=== PATIENT | male | born 1945 | race Caucasian/White ===

== ENCOUNTER 2025-06-02 06:22 | Day surgery (SDC) | payer MEDICARE, BC, SELFPAY ==
[2025-05-31 14:14] VITALS: BMI 25.1
--- NOTE | 2025-06-01 15:11 | EXP.HP ---
History of Present Illness *Admission Date: 06/02/25 *History of present illness: Mr. Mujica is a 79-year-old gentleman who is here for diagnostic EGD. 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 The patient more had C. difficile colitis and was treated with vancomycin with improvement of his symptoms. He does have atrophic gastritis and low B12 levels. The patient had previously been followed with Dr. Alirio Villaseñor in [place]. He did eventually come to see me and had an EGD in January 2024 that showed a duodenal stricture of the first portion which was dilated to 12 mm. There was a pyloric stricture that was dilated also to 12 mm. There was evidence of chronic atrophic gastritis but there was also an esophageal stricture that was dilated to 18 mm. The patient has done very well since then. He did have some reflux esophagitis but I did tell him that he had mostly bile reflux and that with atrophic gastritis he has very low gastric acid levels and I would avoid PPI therapy. He also has associated B12 deficiency. The patient has had a left lower extremity DVT and has been on Eliquis. There has been some resolution of clot on his subsequent scans. He also has some prostatitis. He has chronic left shoulder arthritis and is planning to have this repaired surgically with possible shoulder replacement. [facility] Disclaimer: The information contained in this section may have been updated after the patient was seen, as this information can be updated by other users. Medical History History of DVT (deep vein thrombosis) Hyperlipidemia Coronary artery disease (CAD) excluded Surgical History H/O shoulder surgery History of hip replacement, total Family History Other Heart disease Social History (Updated 06/02/25 @ 07:45 by Belen Saab CRNA) Smoking Status: Never smoker alcohol intake: never substance use type: unknown current occupational status: retired Travel in the last 8 weeks?: None caffeine: No Have you lived/traveled outside [place] in past 30 days?: No Contact w/someone who lives/traveled outside US past 30 days?: No Exposure to someone with infectious disease in past 14 days?: No Do you have a fever (greater than 100.4 F or 38 C)?: No Have you tested positive for COVID-19?: No Exposed to someone with COVID-19 in past 14 days?: No Do you have a sore throat?: No Do you have a cough?: No Do you have any weakness?: No Are you experiencing any nausea/vomitting?: No Do you have any diarrhea?: No Are you experiencing any unusual bleeding?: No Do you have any muscle aches/pain?: No Do you have any abdominal pain?: No Are you experiencing loss of taste or smell?: No Other Medical History Have you received the Pneumonia Vaccine: No Review of Systems Review of Systems Review of systems (narrative): Negative *Cardiovascular Comments: Negative *Gastrointestinal Comments: Negative *Genitourinary Comments: Negative *Musculoskeletal Comments: Negative *Neurologic Comments: Negative Meds Home Medications and Allergies Home Medications ?Medication ?Instructions ?Recorded ?Confirmed ?Type aspirin 81 mg tablet,delayed 81 mg PO DAILY 11/02/24 06/02/25 History release rosuvastatin 20 mg tablet 20 mg PO DAILY 11/02/24 06/02/25 History apixaban 5 mg tablet (Eliquis) 5 mg PO BID 12/01/24 06/02/25 History ascorbate calcium (vitamin C) 500 500 mg PO DAILY 12/01/24 06/02/25 History mg tablet cholecalciferol (vitamin D3) 10 10 mcg PO DAILY 12/01/24 06/02/25 History mcg (400 unit) capsule cyanocobalamin (vitamin B-12) 1,000 mcg PO QODHS 03/01/25 06/02/25 History 1,000 mcg sublingual tablet timolol maleate 0.5 % eye drops 1 drp Eye-Right BID 03/01/25 06/02/25 History New Prescriptions to Start Prescriptions: Allergies Allergy/AdvReac Type Severity Reaction Status Date / Time ciprofloxacin AdvReac Mild Other Verified 06/02/25 07:07 doxycycline AdvReac Headache Verified 06/02/25 07:07 Exam Data for Last 24 hours I & O for Last 24 hours: Intake & Output 05/29/25 05/30/25 05/31/25 06/01/25 23:59 23:59 23:59 23:59 Weight 170 lb *Routine HEENT Exam Head: Present normocephalic Eye: Present EOMI and PERRL ENT: Present mucous membranes moist *Routine Neck Exam Neck: Present supple *Routine Respiratory Exam Respiratory: Present CTA bilaterally *Routine Cardiovascular Exam Cardiovascular: Present RRR *Routine Abdominal Exam Abdominal: Present soft and normoactive bowel sounds; Absent tenderness *Routine Rectal Exam Rectal:: deferred *Routine Genitalia Exam Genitalia:: deferred *Routine Extremities Exam Extremities: Absent cyanosis, clubbing or edema *Routine Skin Exam Skin: Present warm; Absent rash *Routine Neurological Exam Neurological: Present alert and oriented X3 Assessment and Plan *Assessment and plan (1) Duodenal stricture: Status: Acute Category: Medical Code(s): K31.5 - Obstruction of duodenum (2) Chronic atrophic gastritis: Status: Acute Category: Medical Code(s): K29.40 - Chronic atrophic gastritis without bleeding (3) History of esophageal stricture: Status: Acute Category: Medical Code(s): Z87.19 - Personal history of other diseases of the digestive system Plan A/P: 1. History of esophageal stricture and duodenal stricture and chronic atrophic gastritis is the preprocedural diagnosis. The patient will be anesthetized/sedated using MAC sedation. The patient has been seen and examined. Cardiac and lung assessment prior to the examination is stable. Proceed with planned EGD.
--- NOTE | 2025-06-01 15:14 | HMH.PROCNOTE ---
[facility] Procedure Note Date: 06/02/25 Time: 08:24 Procedure Note:: Upper Endoscopy Procedure Report: Esophagogastroduodenoscopy with cold biopsies and TTS balloon dilation Endoscopost: Prabhjot Chisholm II, MD Referring Physician: Ash Marcelino MD Date of Procedure: June 02, 2025 Equipment: Olympus GIF-1100 standard upper endoscope Sedation: MAC sedation Indications: Mr. Mujica is a 79-year-old gentleman who is here for diagnostic EGD. 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 This was felt to be related to NSAIDs (i.e. Excedrin) which she was using for a long period of time for the treatment of headaches. The patient had C. difficile colitis earlier this year and was treated with vancomycin with improvement of his symptoms. He does have atrophic gastritis and low B12 levels. The patient had previously been followed with Dr. Alirio Villaseñor in [place]. He did eventually come to see me and had an EGD in January 2024 that showed a duodenal stricture of the first portion which was dilated to 12 mm. There was a pyloric stricture that was dilated also to 12 mm. There was evidence of chronic atrophic gastritis but there was also an esophageal stricture that was dilated to 18 mm. The patient has done very well since then. He did have some reflux esophagitis but I did tell him that he had mostly bile reflux and that with atrophic gastritis he has very low gastric acid levels and I would avoid PPI therapy. He also has associated B12 deficiency. The patient has had a left lower extremity DVT and has been on Eliquis. There has been some resolution of clot on his subsequent scans. He also has some prostatitis. He has chronic left shoulder arthritis and was planning to have this repaired surgically with possible shoulder replacement. Procedure: Prior to the procedure, a history and physical exam was performed, and patient's medications and allergies were reviewed. The risks, benefits and alternatives of the sedation and procedure were discussed with the patient. All questions were answered and informed consent was obtained. The patient was brought to the procedure room. Patient identification and proposed procedure were verified by the physician and the nurse. The patient was placed in a left lateral decubitus position and the scope was passed under direct vision. Throughout the procedure, the patient's blood pressure, pulse, and oxygen saturations were monitored continuously. The upper GI endoscopy was accomplished without difficulty. The patient tolerated the procedure well. Findings: The scope was passed directly into the upper esophagus and advanced to the third portion of the duodenum. Initially, the 9 mm endoscope could not be advanced through the pylorus easily in the pyloric diameter was approximately 7 to 8 mm (pyloric stenosis). This was traversed and there was a second stenotic region in the first portion of the duodenum that was approximately 9 to 10 mm diameter. A cold biopsy was taken from the second portion of the duodenum for the disaccharidase assay. The scope was withdrawn. A wire-guided TTS hydrostatic balloon was utilized to dilate the stenotic first portion and pylorus and these were both dilated to 13.5 mm with a TTS hydrostatic balloon. The scope was withdrawn into the stomach. There was mild atrophy of the body and fundus of the stomach and cold biopsies were obtained from the fundus. Upon retroflexion there was a very small sliding 1 to 2 cm hiatal hernia. The scope was then withdrawn into the esophagus. There was a distal Schatzki's ring/fibrotic ring. There were strong tertiary contractions and evidence of moderate esophageal dysmotility. The Schatzki's ring was dilated to 20 mm with a TTS hydrostatic balloon with shattering of the ring. The remainder of the esophageal mucosa was normal. Impression: 1. Schatzki's ring status post dilation to 20 mm 2. Moderate esophageal dysmotility/hypercontractile esophagus with small 1 to 2 cm hiatal hernia 3. Mild gastric atrophy 4. 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 I do feel that the fibrotic stricturing is most likely related to prior NSAIDs. The patient should have clinical improvement with dilation.
[2025-06-02 07:11] VITALS: BP 171/82; PULSE 56; RESP 18; TEMP 36.4; O2SAT 98
[2025-06-02] MEDS: LACTATED RINGERS 1000ML 1,000 ML 50 ML IV (07:26)
--- NOTE | 2025-06-02 07:44 | P.PNANES_ITS ---
[facility] Disclaimer: The information contained in this section may have been updated after the patient was seen, as this information can be updated by other users. Medical History History of DVT (deep vein thrombosis) Hyperlipidemia Coronary artery disease (CAD) excluded Surgical History H/O shoulder surgery History of hip replacement, total Family History Other Heart disease Social History Smoking Status: Never smoker alcohol intake: never substance use type: unknown current occupational status: retired Travel in the last 8 weeks?: None caffeine: No [facility] Anesthesia Checklist Patient Identification Patient Identification: Arm Band and Verbal (Name & ) Structural Data Admitted From: Home Planned Operative Procedure/s: EGD Verified Documents: Surgical Consent and History and Physical NPO Status Verified Time NPO: 00:00 Additional verifications Anesthesia Reactions: No Previous Colonoscopy: Yes Airway Assessment Mallampati Score:: Class II Dentition: Good Dentition Neurological Assessment Level of Consciousness: Awake, Alert and Appropriate Hx Seizures: No Numbness or tingling in extremities: No Anesthesia Plan Anesthesia Risk discussed: Yes Anesthesia Plan: Verified ASA Class: II Anesthesia Type: MAC
[2025-06-02 08:22] VITALS: BP 118/68; PULSE 89; RESP 18; TEMP 36.3; O2SAT 95
[2025-06-02 08:32] VITALS: BP 107/68; PULSE 74; RESP 18; O2SAT 93
[2025-06-02 08:42] VITALS: BP 102/70; PULSE 73; RESP 18; O2SAT 94
[2025-06-02 08:52] VITALS: BP 100/81; PULSE 70; RESP 18; O2SAT 96
[2025-06-08 16:33] LABS: Interpretation Notes (.); Lactase 18.05 (>/= 14.0); Maltase 128.13 (>/= 110.0); Palatinase 8.64 (>/= 8.5); Reference Notes (.); Sucrase 32.54 (>/= 25.0)
== END 2025-06-02 09:01 | disposition home or self-care (01) ==
PROVIDERS: PCP Family Medicine; Visit Provider Internal Medicine Gastroenterology
PROC: 0DJ08ZZ Inspection of Upper Intestinal Tract, Via Natural or Artificial Opening Endoscopic (ICD-10-PCS; CPT 43239; principal; 2025-06-02 08:00)
DX: K22.2 Esophageal obstruction (principal); K22.4 Dyskinesia of esophagus; K44.9 Diaphragmatic hernia without obstruction or gangrene; K29.40 Chronic atrophic gastritis without bleeding; K31.1 Adult hypertrophic pyloric stenosis; K31.5 Obstruction of duodenum; I25.10 Atherosclerotic heart disease of native coronary artery without angina pectoris; E78.5 Hyperlipidemia, unspecified; Z86.718 Personal history of other venous thrombosis and embolism; Z79.01 Long term (current) use of anticoagulants; Z88.1 Allergy status to other antibiotic agents; Z79.82 Long term (current) use of aspirin; Z79.899 Other long term (current) drug therapy
CPT/HCPCS: 43239; 43245; 43249; 82657; C1726; J2003; J2704; J7120